=== PATIENT | female | born 1985 | race Caucasian/White ===

== ENCOUNTER → 2016-04-24 | Day surgery (SDC) | payer MEDICAID ==
[~2016-04-24] MED LIST: LIDOCAINE 2% JELLY 5 ML TUBE ONE
== END ==
LOC: END 09:05
PROVIDERS: ATTEND Surgery
PROC: 4A0B7BZ Measurement of Gastrointestinal Pressure, Via Natural or Artificial Opening (ICD-10-PCS; principal; 2016-04-24)
PROC: 4A0B78Z Measurement of Gastrointestinal Motility, Via Natural or Artificial Opening (ICD-10-PCS; 2016-04-24)
DX: K21.9 Gastro-esophageal reflux disease without esophagitis (principal)
CPT/HCPCS: 91010; 91034; J3490